=== PATIENT | male | born 1940 | race Two or more races ===

== ENCOUNTER → 2016-03-23 | Outpatient (CLI) | payer MEDICARE, OTHER ==
[~2016-03-23] MED LIST: AMBIEN10 M1 ORAL; AMLODIPINE BESYL5 MG ORAL; ASPIRIN EC81 MG ORAL; ATORVASTATIN CA20 MG ORAL; AZACTAM1 GM IJ; AZACTAM1 GM IV; BENADRYL25 MG ORAL; CATAPRES0.1 MG ORAL; DOCUSATE SODIU100 MG ORAL; FLAGYL500 MG ORAL; FLOMAX0.4 MG ORAL; GRANIX300 MCG/0. SQ; HEPARIN SO5000 UNIT6 SQ; HEPARIN1000 UNIT/ INJ; ISOSORBIDE DINI30 MG ORAL; LEVAQUIN500 MG ORAL; LINZESS145 MCG PO; METOPROLOL TART50 M1 ORAL; MIRALAX17 G2 ORAL; NEXIUM40 MG ORAL; NORCO 5-325 TA1 EAC1 ORAL; NORCO 5-325 TA1 EACH ORAL; NORVASC5 MG ORAL; PANTOPRAZOLE SO40 MG ORAL; PLAVIX75 MG ORAL; PROTONIX40 MG ORAL; RITUXAN10 MG/ML IV; TEMAZEPAM7.5 MG ORAL; TREANDA100 MG IV; VANCOMYCIN1 GM IV
--- NOTE | 2016-03-23 14:24 | GI Progress Note ---
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 Cardona. Assessment/Plan EUS scheduled for 04/10/16. - NPO @ [facility] prior day procedure instructions given and acknowledged by patient. recommend patient for colonoscopy >> refused by patient at this time. Subjective Gastrointestinal/Abdominal: Reports: abdominal pain Objective T 98.0 BP 119/57 P 62 98 RA HT 5'6 WT 177 lbs General Appearance: no apparent distress, alert Cardiovascular: normal rate Respiratory/Chest: normal breath sounds, no respiratory distress Abdominal Exam: normal bowel sounds, soft, tender, other - ventral hernia Extremities: normal range of motion Objective DATE OF PROCEDURE: 10/06/2014 SURGEON: Adonay Cardona M.D. PROCEDURE: Upper endoscopy. INDICATION: Upper GI bleeding. REASON FOR PROCEDURE: The procedure, risks, benefits, and possible consequences, including hemorrhage, aspiration, perforation and infection, and alternative treatments, were explained to the patient/legal guardian by Dr. Adonay Cardona and the patient/legal guardian understood and accepted these risks. PROCEDURE IN DETAIL: After informed consent was obtained and the patient was adequately sedated, the Olympus upper endoscope was advanced mouth into the second duodenum and retroflexion of the stomach. The patient had a large mass, most probably a GIST starting at about 50 cm from the incisors. G-junction needs to be about 40 cm from the incisors. This lesion measured at least was 5 to 6 cm needed ulcers at the center most for the source of bleeding. This is most probably as I mentioned a GIST. Biopsy from this lesion and antrum of the stomach was obtained to rule out H. pylori infection. SUMMARY OF FINDINGS: Large ulcerative lesion, had about 50 cm from the incisors, the area of distal body/proximal antrum, highly suspicious for GIST and most probably the source of bleeding. RECOMMENDATIONS: 1. Avoid anticoagulation. 2. Get abdominal CT for evaluation and size of this tumor. 3. We recommend surgical evaluation for possible resection. Ignacia Neumann N.P. Mar 23, 2016 14:24
[2016-03-23 16:19] VITALS: BP 119/51
== END | disposition home or self-care (01) ==
LOC: PAN 13:39
DX: C16.9 Malignant neoplasm of stomach, unspecified (principal); R10.9 Unspecified abdominal pain; C85.90 Non-Hodgkin lymphoma, unspecified, unspecified site; D64.9 Anemia, unspecified; R79.89 Other specified abnormal findings of blood chemistry
CPT/HCPCS: 99211